=== PATIENT | female | born 1935 | race Caucasian/White ===

== ENCOUNTER 2019-12-21 19:37 | Emergency (ER) | payer SELFPAY ==
[2019-12-21 20:15] VITALS: BP 132/62; PULSE 69; TEMP 98.9; BMI 28.4
--- NOTE | 2019-12-21 20:39 | PDOC ---
History of Present Illness - General Chief Complaint: Headache Stated Complaint: LEFT EAR AND HEAD PAIN Time Seen by Provider: 12/21/19 20:38 - History of Present Illness Initial Comments: 12/21/19 20:40 84 F with hx of HTN, presented to the ED with "headaches and ear pain". Patient is from [facility] visiting relatives. She had left sided headaches for 2 days and left earpain. Headache and earpain happened suddenly. Now she has mild left facial droop. Last time she was ok was 2 hours ago. Patient denies chest pain, abdominal pain, nausea, vomiting, difficulty walking, dizziness. NIH stroke 3. PMHX: as in HPI PSHX: none Meds: none Allergies: Tob:denies Etoh: denies Rec drugs: denies PCP: none Legal Recruiter: alfredo CASTAÑEDA GENERAL/CONSTITUTIONAL: No fever or chills. No weakness. HEAD, EYES, EARS, NOSE AND THROAT: No change in vision. +left ear pain, no discharge. No sore throat. CARDIOVASCULAR: No chest pain or shortness of breath RESPIRATORY: No cough, wheezing, or hemoptysis. GASTROINTESTINAL: No nausea, vomiting, diarrhea or constipation. GENITOURINARY: No dysuria, frequency, or change in urination. MUSCULOSKELETAL: No joint or muscle swelling or pain. No neck or back pain. SKIN: No rash NEUROLOGIC:+ left sided headache, no vertigo, loss of consciousness, or change in strength/sensation. ENDOCRINE: No increased thirst. No abnormal weight change HEMATOLOGIC/LYMPHATIC: No anemia, easy bleeding, or history of blood clots. ALLERGIC/IMMUNOLOGIC: No hives or skin allergy. PE: vital sign is within normal limit. GENERAL: Awake, alert, and fully oriented, in no acute distress accompany by her relative. HEAD: No signs of trauma, normocephalic, atraumatic EYES: PERRLA, EOMI, sclera anicteric, conjunctiva clear, no lesion around the eyes, Eyes can be closed completely. ENT: hearing grossly normal, nares patent, oropharynx clear without exudates. Moist mucosa. Left External canal is red with vesicles, vesicles on left TM, NECK: Normal ROM, supple, no lymphadenopathy, JVD, or masses LUNGS: No distress, speaks full sentences, clear to auscultation bilaterally HEART: Regular rate and rhythm, normal S1 and S2, no murmurs, rubs or gallops, peripheral pulses normal and equal bilaterally. ABDOMEN: Soft, nontender, normoactive bowel sounds. No guarding, no rebound. No masses EXTREMITIES : Normal inspection, Normal range of motion, no edema. No clubbing or cyanosis. NEUROLOGICAL: Cranial nerves II through XII grossly intact. Normal speech, normal gait, mild left facial droop, left upper forehead palsy. (complete perry palsy). SKIN: Warm, Dry, normal turgor, no rashes or lesions noted Past History - Medical History Allergies/Adverse Reactions: Allergies Allergy/AdvReac Type Severity Reaction Status Date / Time No Known Allergies Allergy Verified 12/21/19 22:18 Home Medications: Ambulatory Orders Prednisone [Prednisone 50 MG TABLETS] 60 mg PO DAILY #7 tablet 12/21/19 Valacyclovir HCl [Valacyclovir] 1,000 mg PO TID 7 Days #21 tablet 12/21/19 COPD: No HTN: Yes Hypercholesterolemia: Yes Other medical history: Aneurism of the brain - Psycho-Social/Smoking History Smoking History: Never smoked - Substance Abuse Hx (Audit-C & DAST Scrn) How often the patient has a drink containing alcohol: Never Score: In Men: 4 or > Positive; In Women: 3 or > Positive: 0 Screen Result (Pos requires Nsg. Audit-10AR): Negative *Physical Exam - Vital Signs Last Vital Signs Temp Pulse Resp BP Pulse Ox 98.9 F 69 20 132/62 98 12/21/19 19:46 12/21/19 19:46 12/21/19 19:46 12/21/19 19:46 12/21/19 19:46 Medical Decision Making - Medical Decision Making 12/21/19 22:05 CT head scan is negative. Blood sugar is 188. 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 12/21/19 22:38 She will get one dose of decadrone and valcyclory here. Will get steroid, and valcyclovir at home. 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) Condition: Good Disposition: HOME - Additional Discharge Information Prescriptions: Prednisone [Prednisone 50 MG TABLETS] 60 mg PO DAILY #7 tablet Valacyclovir HCl [Valacyclovir] 1,000 mg PO TID 7 Days #21 tablet - Follow up/Referral Referrals: Jon Pena MD [Staff Physician] - Shawanda Marino MD [Staff Physician] - Zeeshan Coelho [Non Staff, Medical] - - Patient Discharge Instructions Patient Printed Discharge Instructions: DI for Shingles, Dayday Ravi Syndrome Additional Instructions: Fue visto en el servicio de urgencias por quejas de dolor de kourtney y dolor de odo En el servicio de urgencias te evaluaron con imgenes Tus resultados fueron negativos No parece ernie hollie necesidad aguda de hospitalizacin inmediata. Se le recomienda hacer un seguimiento con huber mdico de atencin primaria, neurlogo y oftalmlogo en el plazo de 1 semana. Le dieron hollie receta para -Valaciclovir 1000 mg TID x 7 arana -Prednisona 60 mg al da x 7 arana Regrese al servicio de urgencias de inmediato si experimenta un empeoramiento del dolor o dolor de kourtney. You were seen in the ED for complaints of headache and ear pain In the ED you were evaluated with imaging Your results were negative There does not appear to be an acute need for immediate hospitalization. You are advised to follow up with your Primary Care Physician , neurologist and operator electronic warfare within 1 week. You were given a prescription for -Valacyclovir 1000mg TID x 7 days -Prednisone 60mg qday x 7 days Return to the ED immediately if you experience worsening pain, or headache. Print Language: MALAGASY - Post Discharge Activity
[2019-12-21] MEDS ORDERED: valACYclovir HCL 1000 MG TABLET PO ONE (20:48)
[2019-12-21] MEDS ORDERED: DEXAMETHASONE 4 MG TABLET (FP) PO ONE ×2 (21:00)
--- NOTE | 2019-12-21 21:42 | PDOC ---
Documentation entered by Fredy Melgar SCRIBE, acting as scribe for Fred Gonzalez DO. Fred Gonzalez DO: This documentation has been prepared by the Talia angel Angel, SCRIBE, under my direction and personally reviewed by me in its entirety. I confirm that the documentation accurately reflects all work, treatment, procedures, and medical decision making performed by me. Attending Attestation - Resident Resident Name: Vidal Maier - ED Attending Attestation I have performed the following: I have examined & evaluated the patient, The case was reviewed & discussed with the resident, I agree w/resident's findings & plan - HPI HPI: 12/21/19 21:05 84yo f HTN Here today with l ear pain and facial pain/redness since sunday Associated with facial drooping Cannot lift left eyebrow No recent rash or bug bites No fever, headaches, change sin vision, no facial rashes - Physicial Exam PE: 12/21/19 21:05 On ENT vesicles in her outer ear canal along left oracle and in the external aud canal Peripheral incomplete CN VII palsy w/ forehead involvement and very subtle L lower facial involvment (Appears to be peripheral) Able to close left eyelid Left conjunctiva appears clear without erythema no tearing No rash to forehead or nose or around left eye 12/21/19 21:43 - Medical Decision Making 12/21/19 21:05 84 yo f with L sided bells palsy and L otalgic vesicular rash appear to be herpetic 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 CT negative for acute pathology, FS 188 12/21/19 21:24 12/21/19 21:42 Discharge - Discharge Information Problems reviewed: Yes Condition: Good Disposition: HOME - Admission No - Follow up/Referral - Patient Discharge Instructions - Post Discharge Activity
[2019-12-21] MEDS ORDERED: valACYclovir HCL 500 MG TABLET (FP) ONE (22:09)
[2019-12-21] MEDS ORDERED: valACYclovir HCL 500 MG TABLET (FP) PO ONE (22:30)
== END 2019-12-21 23:29 | disposition home or self-care (01) ==
LOC: JER 19:37
DX: B02.21 Postherpetic geniculate ganglionitis (principal)
CPT/HCPCS: 70450-TC; 82962; 99284-25

== ENCOUNTER 2020-07-24 12:03 | Emergency (ER) | payer OTHER ==
[2020-07-24 13:04] VITALS: TEMP 98.2; BMI 29.1
[2020-07-24] MEDS ORDERED: morphine CARPU-JECT 2 MG/1 ML DISP.SYRIN IVPUSH ONE ×2 (14:06→15:40)
[2020-07-24] MEDS ORDERED: MORPHINE SULFATE 2 MG/ML VIAL ONE ×2 (14:23→15:45)
[2020-07-24] MEDS ORDERED: LIDOCAINE HCL 1%, 10 MG/ML (50 mL VIAL) SQ ONE (14:31)
[2020-07-24 15:54] VITALS: BP 131/72; PULSE 88
[2020-07-24 16:29] LABS: BASO % 0.1 % (0-2.0); EOS % 0.1 % (0-4.5); HEMATOCRIT 39.8 % (32.4-45.2); HEMOGLOBIN 13.1 GM/dL (10.7-15.3); LYMPH % 12.3 % (8-40); MCH 29.6 pg (25.7-33.7); MCHC 32.9 g/dl (32.0-36.0); MEAN PLT VOLUME 8.3 fl (7.5-11.1); MONO % 5.6 % (3.8-10.2); NEUT % 81.9 % (42.8-82.8); PLATELET COUNT 279 K/MM3 (134-434); RBC 4.42 M/mm3 (3.60-5.2); RDW 13.7 % (11.6-15.6); WHITE BLOOD COUNT 16.8 K/mm3 (4.0-10.0)
[2020-07-24 16:40] LABS: INR 0.92 (0.83-1.09); PROTHROMBIN TIME (PATIENT) 11.3 SEC (9.7-13.0)
[2020-07-24 16:43] LABS: ACTIVATED PTT 25.4 SECONDS (25.2-36.5)
[2020-07-24 16:45] LABS: ALBUMIN 3.3 g/dl (3.4-5.0); BLOOD UREA NITROGEN 14.1 mg/dL (7-18)
[2020-07-24] MEDS ORDERED: SODIUM CHLORIDE 0.9% 500 ML INFUS.BAG IV ONE (16:47)
[2020-07-24 16:48] LABS: CREATININE 0.6 mg/dL (0.55-1.3)
[2020-07-24 16:50] LABS: BILIRUBIN,TOTAL 0.3 mg/dL (0.2-1); TOT PROT 6.8 g/dl (6.4-8.2)
== END 2020-07-24 18:24 | disposition home or self-care (01) ==
LOC: JER 12:03
PROC: 3E033NZ Introduction of Analgesics, Hypnotics, Sedatives into Peripheral Vein, Percutaneous Approach (ICD-10-PCS; principal; 2020-07-24)
PROC: 3E033NZ Introduction of Analgesics, Hypnotics, Sedatives into Peripheral Vein, Percutaneous Approach (ICD-10-PCS; 2020-07-24)
DX: S42.201A Unspecified fracture of upper end of right humerus, initial encounter for closed fracture (principal); S42.291A Other displaced fracture of upper end of right humerus, initial encounter for closed fracture
CPT/HCPCS: 36415; 70450-TC; 72125-TC; 73030-TC-RT-FY; 73060-TC-RT-FY; 73200-TC-RT; 80053; 82962; 85025; 85610; 85730; 86850; 86900; 86901; 99285-25